=== PATIENT | male | born 1940 | race Caucasian/White ===

== ENCOUNTER 2024-07-16 07:12 | Day surgery (SDC) | payer MEDICARE, OTHER ==
[2024-07-08 15:20] LABS: BASOPHILS # (AUTO) 0.1 X10'3 (0-0.2); BASOPHILS % (AUTO) 1.2 % (0-1); EOSINOPHILS # (AUTO) 0.1 X10'3 (0-0.9); EOSINOPHILS % (AUTO) 1.8 % (0-6); LYMPHOCYTES # (AUTO) 1.2 X10'3 (1.1-4.8); LYMPHOCYTES % (AUTO) 16.5 % (21-51); MEAN CORPUSCULAR HEMOGLOBIN 30.3 PG (27.0-31.0); MEAN CORPUSCULAR HGB CONC 33.2 g/dL (33.0-36.5); MEAN CORPUSCULAR VOLUME 91.3 FL (78-98); MEAN PLATELET VOLUME 8.7 FL (7.4-10.4); MONOCYTES # (AUTO) 0.5 X10'3 (0-0.9); MONOCYTES % (AUTO) 6.9 % (2-12); NEUTROPHILS # (AUTO) 5.4 X10'3 (1.8-7.7); NEUTROPHILS % (AUTO) 73.6 % (42-75); PRE OP HEMATOCRIT 39.4 % (42.0-52.0); PRE OP HEMOGLOBIN 13.1 g/dL (14.0-17.9); PRE OP PLATELET COUNT 229 X10'3 (140-440); PRE OP WHITE BLOOD COUNT 7.4 10'3 (4.8-10.8); RED BLOOD COUNT 4.32 X10'6 (4.70-6.10); RED CELL DISTRIBUTION WIDTH 15.3 % (11.5-14.5)
[2024-07-08 15:57] LABS: ALBUMIN 3.7 G/DL (3.4-5.0); ALKALINE PHOSPHATASE 115 IU/L (46-116); BLOOD UREA NITROGEN 10 MG/DL (7-18); BUN/CREATININE RATIO 11.5 (10.0-20.0); CALCIUM 9.1 MG/DL (8.5-10.1); CHLORIDE 100 MMOL/L (99-107); CREATININE 0.87 MG/DL (0.60-1.10); PRE OP ALT 20 U/L (30-65); PRE OP ANION GAP 9 (8-16); PRE OP AST 22 U/L (10-37); PRE OP BILIRUB, TOTAL 0.5 MG/DL (0.0-1.0); PRE OP GLUCOSE 84 MG/DL (70-104); PRE OP POTASSIUM 4.1 MMOL/L (3.4-5.1); PRE OP SODIUM 135 MMOL/L (135-145); TOTAL CARBON DIOXIDE 26.1 MMOL/L (24-32); TOTAL PROTEIN 7.5 G/DL (6.4-8.2); eGFR 84 ML/MIN
[~2024-07-16] VITALS: Ht 170.2 cm; Wt 76.1 kg
[2024-07-16] VITALS (8 sets, daily range): BP systolic 117–139; BP diastolic 56–73; PULSE 63–78; RESP 13–16; TEMP 98.2; O2SAT 92–98
[~2024-07-16 07:12] MED LIST: LOSA25TA41 PO; METAMUCIL; ROSU5TAB43 PO; VITAMIN C; VITAMIN D3; [UNRECOGNIZED DRUG - OTHER]
[2024-07-16] MEDS: famotidine 20mg tablet PO ONE (08:07)
[2024-07-16] MEDS: cefazolin 2gm/D5W 100mL 100 ML IV ONE (08:08)
[2024-07-16] MEDS: ringers solution, lacted 1,000 ML IV SCH (08:08)
[2024-07-16] MEDS ORDERED: ringers solution, lacted 1,000 ML IV SCH (08:15)
[2024-07-16] MEDS ORDERED: ondansetron/PF 4mg/2ml inj IV PRN (08:15)
[2024-07-16] MEDS ORDERED: meperidine/PF 25mg/ml syringe IV PRN ×3 (08:15)
[2024-07-16] MEDS ORDERED: morphine 4 MG/ML inj SYRINge IV PRN (08:15)
[2024-07-16] MEDS ORDERED: proCHLORperazine 10 MG/2 ml inj IV PRN (08:15)
[2024-07-16] MEDS ORDERED: labetalol 20mg/4ml (5mg/ml) syringe IV PRN (08:15)
[2024-07-16] MEDS ORDERED: enalaprilat dihydrate 2.5mg/2ml vial IV PRN (08:15)
[2024-07-16] MEDS ORDERED: morphine 2 MG/ML inj. syringe IV PRN (08:15)
[2024-07-16] MEDS: tamsulosin 0.4mg capsule PO ONE (08:39)
[2024-07-16] MEDS ORDERED: LIDOcaine 1% (10mg/ml)w/preservative inj. 20ml MDV ONE (09:43)
[2024-07-16] MEDS ORDERED: BUPIVAcaine 2.5mg/ml inj 50ml vial (contains preservative) ONE (09:44)
[2024-07-16] MEDS ORDERED: sevoflurane 250ml liquid IH ONE (09:45)
[2024-07-16] MEDS ORDERED: midazolam 1 mg/ML 2ml injection ONE (09:52)
[2024-07-16] MEDS ORDERED: propofol inj 20 ML IV ONE (09:52)
[2024-07-16] MEDS ORDERED: fentaNYL/PF 50MCG/1 ML 2ML syringe ONE (09:52)
[2024-07-16] MEDS ORDERED: rocuronium 10mg/ml inj IV ONE (09:52)
[2024-07-16] MEDS ORDERED: LIDOcaine 2% (20mg/ml) 5ml vial ONE (09:52)
[2024-07-16] MEDS ORDERED: ePHEDrine 50MG/ML INJ. ONE (10:28)
[2024-07-16] MEDS ORDERED: meperidine/PF 25mg/ml syringe ONE (11:19)
[2024-07-16] MEDS: BUPIVAcaine/PF 2.5 mg/ml (0.25%) 30ml vial IJ ONE (11:27)
[2024-07-16] MEDS ORDERED: HYDROcodone/acetaminophen 5mg/325mg tablet PO PRN (11:50)
== END 2024-07-16 13:40 | disposition home or self-care (01) ==
LOC: PAS 07:12
PROVIDERS: ATTEND Surgery
DX: K40.20 Bilateral inguinal hernia, without obstruction or gangrene, not specified as recurrent (principal); K42.9 Umbilical hernia without obstruction or gangrene; I10 Essential (primary) hypertension; E78.5 Hyperlipidemia, unspecified; I25.2 Old myocardial infarction; Z87.891 Personal history of nicotine dependence; Z85.048 Personal history of other malignant neoplasm of rectum, rectosigmoid junction, and anus; Z79.899 Other long term (current) drug therapy; Z98.890 Other specified postprocedural states; Z80.3 Family history of malignant neoplasm of breast; Z82.3 Family history of stroke
CPT/HCPCS: 36415; 49591; 49650; 80053; 82948; 85025; 93005; A4215; A4618; C1781; J0131; J0690; J1100; J2001; J2175; J2250; J2405; J2704; J2710; J3010; J3490; J7030; J7120; Z7506; Z7508; Z7512; Z7610

== ENCOUNTER 2024-08-20 09:16 | Outpatient (CLI) | payer MEDICARE, OTHER ==
[2024-08-20 11:09] LABS: ALBUMIN 3.8 G/DL (3.4-5.0); ANION GAP 15 (8-16); BLOOD UREA NITROGEN 11 MG/DL (7-18); BUN/CREATININE RATIO 13.4 (10.0-20.0); CALCIUM 9.5 MG/DL (8.5-10.1); CHLORIDE 98 MMOL/L (99-107); CREATININE 0.82 MG/DL (0.60-1.10); GLUCOSE 81 MG/DL (70-104); POTASSIUM 4.5 MMOL/L (3.5-5.1); SODIUM 133 MMOL/L (135-145); TOTAL CARBON DIOXIDE 20.5 MMOL/L (24-32); eGFR 90 ML/MIN
[2024-08-20] MEDS ORDERED: iohexol 350MG/ML 100ml bottle IV ONE (11:20)
== END 2024-08-20 23:59 | disposition home or self-care (01) ==
LOC: RAD 09:16
PROVIDERS: ATTEND Internal Medicine Interventional Cardiology
DX: N28.1 Cyst of kidney, acquired (principal); K57.30 Diverticulosis of large intestine without perforation or abscess without bleeding; K76.89 Other specified diseases of liver; N32.3 Diverticulum of bladder; I71.40 Abdominal aortic aneurysm, without rupture, unspecified; E78.5 Hyperlipidemia, unspecified
CPT/HCPCS: 36415; 74174; 80048; Q9967